=== PATIENT | female | born 1960 | race Caucasian/White ===

== ENCOUNTER 2016-12-03 06:11 | Day surgery (SDC) | payer SELFPAY ==
[2016-11-30 15:16] VITALS: BMI 22.4
[2016-12-03] MEDS ORDERED: LIDOCAINE 1%-EPI 1:100,000 30 ML MDV IJ ONE (06:27)
[2016-12-03] MEDS ORDERED: POVIDONE-IODINE 5% OPHTHALMIC PREP 30 ML SOLUTION ONE (06:27)
[2016-12-03] MEDS ORDERED: PROPOFOL 20 ML ONE ×6 (06:45→08:37)
[2016-12-03] MEDS ORDERED: MIDAZOLAM HCL 2 MG/2 ML SINGLE DOSE VIAL ONE ×2 (06:46)
[2016-12-03] MEDS ORDERED: SUCCINYLCHOLINE CHLORIDE 200 MG/10 ML VIAL ONE (06:46)
[2016-12-03] MEDS ORDERED: BACITRACIN 3.5 GM OPTHALMIC OINT TUBE ONE (06:51)
[2016-12-03] MEDS ORDERED: TETRACAINE 0.5% OPHTH SOLN 2 ML BOTTLE ONE (06:51)
[2016-12-03] MEDS ORDERED: BSS (NA/CA/MG/K) BALANCED SALT SOLUTION OPHTH SOLN 15 ML BOTTLE ONE (07:39)
[2016-12-03] MEDS ORDERED: LIDOCAINE 1%/EPI 1:100000 (50 ML MULTI DOSE VIAL) INF ONE ×2 (07:50)
[2016-12-03] MEDS ORDERED: ONDANSETRON 4 MG/2 ML VIAL ONE (07:52)
[2016-12-03] MEDS ORDERED: GUM MASTIC/STORAX/MSAL/ALCOHOL 1 DRP DROPSBTL MC ONE (08:13)
[2016-12-03] MEDS ORDERED: DEXAMETHASONE SOD PHOSPHATE 4 MG/1 ML VIAL ONE (08:18)
[2016-12-03 09:13] VITALS: TEMP 97.8
[2016-12-03] MEDS ORDERED: LACTATED RINGERS SOLUTION 1,000 ML IV SCH (09:30)
[2016-12-03] MEDS ORDERED: ONDANSETRON 4 MG/2 ML VIAL IVPUSH ONE (09:35)
[2016-12-03] MEDS ORDERED: ONDANSETRON 4 MG/2 ML VIAL IVPUSH PRN (09:56)
[2016-12-03] MEDS ORDERED: oxyCODONE HCL 5 MG TABLET PO PRN (09:58)
[2016-12-03] MEDS ORDERED: oxyCODONE HCL 5 MG TABLET ONE (11:02)
[2016-12-03 12:44] VITALS: BP 141/73; PULSE 60
--- NOTE | 2016-12-04 19:03 | OP ---
DATE OF OPERATION: 12/03/2016 SURGEON: Jesus Baires M.D. NON DESTRUCTIVE EVALUATION MANAGER SURGEON: Shukri Tsai PREOPERATIVE DIAGNOSIS: Bilateral upper and lower lid blepharochalasis. POSTOPERATIVE DIAGNOSIS: Bilateral upper and lower lid blepharochalasis. OPERATIVE PROCEDURE: Bilateral upper and lower lid blepharoplasty. OPERATIVE INDICATION: Patient is a middle-aged woman who complains of aging eyelid deformity with overhanging skin on the upper eyelids as well as puffiness in the lower eyelids with extra skin. The risks and benefits, surgical versus nonsurgical alternatives, as well as material complications for the upper and lower lid blepharoplasty were described to the patient preoperatively on multiple occasions, and she agreed to planned procedure. OPERATIVE PROCEDURE IN DETAIL: Patient was taken to the operating room, and after induction of monitored anesthesia care in the supine position, both arms were tucked and padded. Venodyne boots were placed, and the patient's eyelids and face were prepped with Chloraprep solution. At this point, eye protectors were placed on the eye with tetracaine liquid, and the eye and cornua were protected with the camilo. Then 1% local lidocaine infused, 1:200,000 epinephrine was injected into the pattern, which was drawn in the sitting position in the holding area with the patient's knowledge for both upper and lower eyelids, and then after allowing topical anesthesia hemostasis for approximately 10 minutes, attention was turned to the eyelids. An incision was made with the the Shelf needle tip cautery through the skin the upper eyelid to the right side, down through the skin, through the orbicularis muscle, excising skin and orbicularis redundancy in the upper eyelid. The fat pad in the upper medial portion of the lid as well as lower medial portion were excised and clamped and coagulated, and then the exact same procedure was carried out on the left side, removing an asymmetric amount of tissue for the pattern, which was drawn preoperatively. At this point, the skin was closed upon itself using 5-0 Prolene suture in a running subcuticular fashion. When this was accomplished, attention was turned to the lower lids. The right eye was attended to first. An incision was made laterally and then medially along the lower lid subciliary margin with a 15 scalpel tunneled down through the skin, raising a skin muscle flap on the lower eyelid. The fatty compartments on the medial, central, and lateral portions were attended to. The fatty material was excised and removed down to the orbital rim. Good shape and contour was seen. The skin was advanced and redraped, and trimmed to a pleasing contour with a suspension suture at the corner. Then 6-0 silk sutures were used to close the lower eyelid, left long, to prevent abrasions. The exact same procedure was carried out on the left eyelid, removing and elevating the skin in a similar fashion. Good shape and contour were seen after all 4 blepharoplasties were completed. An ice dressing was placed over the eyes with bacitracin ophthalmic ointment. The corneal camilo were removed, and the patient tolerated procedure well. She went to the recovery room in satisfactory condition. JESUS BAIRES M.D. [id number]
== END 2016-12-03 12:30 | disposition home or self-care (01) ==
LOC: FASU 06:11
PROVIDERS: ATTEND Plastic Surgery
PROC: 08SN0ZZ Reposition Right Upper Eyelid, Open Approach (ICD-10-PCS; 2016-12-03)
PROC: 08SP0ZZ Reposition Left Upper Eyelid, Open Approach (ICD-10-PCS; 2016-12-03)
PROC: 08SQ0ZZ Reposition Right Lower Eyelid, Open Approach (ICD-10-PCS; 2016-12-03)
PROC: 08SR0ZZ Reposition Left Lower Eyelid, Open Approach (ICD-10-PCS; principal; 2016-12-03 07:45)
DX: H02.34 Blepharochalasis left upper eyelid (principal); H02.35 Blepharochalasis left lower eyelid; H02.32 Blepharochalasis right lower eyelid; H02.31 Blepharochalasis right upper eyelid
CPT/HCPCS: 94760